=== PATIENT | male | born 1995 | race Two or more races ===

== ENCOUNTER 2020-08-17 18:08 | Emergency (ER) | payer MEDICAID, SELFPAY ==
[2020-08-17 19:08] VITALS: BP 127/58; PULSE 90; RESP 20; TEMP 37.5; O2SAT 99
== END 2020-08-17 20:56 | disposition left against medical advice (07) ==
PROVIDERS: Emergency Provider Emergency Medicine
DX: F41.1 Generalized anxiety disorder (principal); F43.0 Acute stress reaction

== ENCOUNTER 2020-08-18 05:02 | Emergency (ER) | payer MEDICAID, SELFPAY ==
--- NOTE | 2020-08-18 | ECG_ITS ---
Test Reason : CHEST PAIN Blood Pressure : / mmHG Vent. Rate : 084 BPM Atrial Rate : 084 BPM P-R Int : 146 ms QRS Dur : 098 ms QT Int : 358 ms P-R-T Axes : 066 045 033 degrees QTc Int : 423 ms Normal sinus rhythm Normal ECG No previous ECGs available Referred By: Generic ED Physician Electronically Signed By:Brendon Bro
--- NOTE | ~2020-08-18 | XR_ITS ---
EXAMINATION: XR CHEST CLINICAL INFORMATION: Chest pain COMPARISON: Chest radiograph 12/14/2018, 12/20/2017. TECHNIQUE: 2 views of the chest were obtained. FINDINGS: Cardiac mediastinal silhouette is normal in appearance. No effusions or pneumothoraces are identified. A normal pattern of pulmonary vasculature is visualized. No pulmonary consolidation is noted in the lungs appear clear. No skeletal abnormalities are noted. XR/XR chest 2V IMPRESSION: Normal chest. Lungs clear.
[2020-08-18 05:52] VITALS: BP 141/85; PULSE 93; RESP 18; TEMP 37.6; O2SAT 100
--- NOTE | 2020-08-18 07:23 | ED_ITS ---
HPI - Chest Pain General Chief Complaint: Anxiety Stated Complaint: Chest pain Time Seen by Provider: 08/18/20 07:25 Source: patient Mode of arrival: ambulatory Limitations: no limitations History of Present Illness HPI narrative: 25 yo male healthy comes in with 24 hours of dyspnea and some chest pain thinks it might be anxiety MD complaint: chest pain and other (dyspnea) Onset (ago): day(s) (1) Timing of current episode: constant Onset: during rest and during exertion Pain location: substernal Pain radiation: none Severity: moderate Quality: tightness Relieving factors: nothing Exacerbating factors: nothing Associated symptoms: dyspnea Treatment prior to arrival: none Related Data Previous Rx's Medication Instructions Recorded hydroxyzine HCl 50 mg PO TID PRN #30 tab 08/18/20 Allergies Allergy/AdvReac Type Severity Reaction Status Date / Time amoxicillin [AMOXICILLIN] Allergy Intermediate RASH Unverified 03/17/20 18:52 Review of Systems Review of Systems: Constitutional : No Weight loss, No Fever, No Chills ENT/Mouth : No sore throat, No Rhinorrhea Eyes: No Eye Pain, No Swelling Cardiovascular : pos Chest Pain, pos SOB, no Dyspnea on Exertion, No Orthopnea, No Edema, No Palpitations Respiratory : No Cough, No Sputum Gastrointestinal : no Nausea, No Vomiting, No Diarrhea, No abdominal Pain, No Hematochezia, No Melena Genitourinary : No Dysuria, No Urinary Frequency Musculoskeletal : No joint pain, No Myalgias, No Joint Swelling Skin : No Skin Lesions, No rash Neuro : No Weakness, No Numbness, No Dizziness, No Headache Psych : pos Anxiety/Panic, No Depression Heme/Lymph: No Bruising, No Lymphadenopathy Endocrine : No Polyuria, No Polydipsia All other systems reviewed and are negative [facility] Past Medical History Attestation statement: The following information was validated with the patient. Medical History (Updated 08/18/20 @ 08:40 by Lilo Leary DO) No active medical problems Social History Social History (Updated 08/18/20 @ 07:37 by Lilo Leary DO) Smoking Status: Former smoker Use of substances other than those prescribed or required for medical reasons: No Advance Directives: No Advance Directives Information Provided: Yes Physical Exam Vital Signs: Vital Signs: Last Vital Signs Temp 99.2 F 08/18/20 07:37 Pulse 88 08/18/20 07:37 Resp 18 08/18/20 07:37 BP 138/90 H 08/18/20 07:37 Pulse Ox 100 08/18/20 07:37 Body Mass Index 19.2 Appearance: Alert. Oriented X3. No acute distress. Anxious Eyes: Pupils equal, round and reactive to light. ENT: Pharynx normal. Neck: Normal inspection. Neck supple. CVS: Normal heart rate and rhythm. Pulses normal. Respiratory: No respiratory distress. Breath sounds normal. Abdomen: Soft and nontender. Skin: Skin warm and dry. Normal skin color. Normal skin turgor. Extremities: No lower extremity edema. No calf ttp Neuro: Oriented X 3. No motor deficit. No sensory deficit. Course Course Course Narrative: stable for DC, negative workup MDM - Chest Pain MDM Narrative Medical decision making narrative: 25 yo male with dyspnea and some chest pain x 1 days seems more anxiety related EKG, CXR and troponin x 1 ordered, will send off COVID test as well - PO ativan for anxiety, he is PERC negative has symmetric distal pulses doubt dissection Lab Data Labs: Lab Results 08/18/20 08/18/20 Range/Units 07:55 07:55 Troponin I High Sens < 3.5 (<3.5-35.0) ng/L COVID-19 (ROSIE) Negative (Negative) COVID-19 Clin Com See Note ECG Data ECG #1: Attestation: I personally reviewed and interpreted this ECG as follows: ECG interpretation date: 08/18/20 ECG interpretation time: 07:26 Interpretation: Rate: 84 Rhythm: NSR [place]: normal Normal P waves. Normal MIGDALIA. Normal QRS complex. ST T wave : normal no KEYUR qTC: normal prior studies: no acute ischemia The study has been interpreted contemporaneously by me. . Discharge Plan Discharge Clinical Impression: Acute anxiety Chest pain Qualifiers: Chest pain type: unspecified Qualified Code(s): R07.9 - Chest pain, unspecified Patient Disposition: Home, Self-Care Instructions: Chest Pain (ED), Anxiety (ED) Additional Instructions: return to ED for any worsening symptoms or concerns YOUR CHEST XRAY, COVID SWAB AND HEART MARKERS IN YOUR BLOOD WERE NORMAL Prescriptions: New hydroxyzine HCl 50 mg tablet 50 mg PO TID PRN (Reason: anxiety) Qty: 30 RF: 0 Referrals: Physician,None [Primary Care Provider] - 2 weeks (RECHECK BLOOD PRESSURE) Stand Alone Forms: Work/School Release
[2020-08-18 07:37] VITALS: BP 138/90; PULSE 88; RESP 18; TEMP 37.3; O2SAT 100; BMI 19.2
[2020-08-18] MEDS: LORazepam 1 MG TABLET PO (07:42)
[2020-08-18 08:16] LABS: IDNOW Serial# 9DD0AD1C
[2020-08-18 08:17] LABS: COVID-19 Test Negative (Negative)
[2020-08-18 08:33] LABS: Troponin-I High Sensitivity < 3.5 ng/L (<3.5-35.0)
== END 2020-08-18 08:53 | disposition home or self-care (01) ==
PROVIDERS: Emergency Provider Emergency Medicine
DX: R07.9 Chest pain, unspecified (principal); F41.9 Anxiety disorder, unspecified; Z20.822 Contact with and (suspected) exposure to COVID-19
CPT/HCPCS: 36415; 71046; 84484; 87635; 93005; 99283; 99284

== ENCOUNTER 2021-07-28 07:12 | Outpatient (REF) | payer MEDICAID, SELFPAY | END 2021-07-28 07:13 | disposition home or self-care (01) | LOC: HO.LAB 07:12 | PROVIDERS: PCP Internal Medicine; Visit Provider Nurse Practitioner | DX: K51.90 Ulcerative colitis, unspecified, without complications (principal); K92.1 Melena; D64.9 Anemia, unspecified; E73.9 Lactose intolerance, unspecified | CPT/HCPCS: 36415; 86003; 99202 ==

== ENCOUNTER 2021-09-12 07:32 | Outpatient (REF) | payer MEDICAID, SELFPAY ==
[2021-09-12 08:33] LABS: MANUAL DIFF FLAG NO
[2021-09-12 09:18] LABS: Basophils Percent Auto 0.4 % (0-2); Eosinophils Absolute Auto 0.1 X10*3/uL (0.0-0.4); Eosinophils Percent Auto 1.3 % (0-4); Hematocrit 34.5 % (42.0-52.0); Hemoglobin 10.2 g/dl (14.0-18.0); Imm Gran Abs Auto 0.23 X10*3/uL (0.00-0.03); Imm Gran Pct Auto 2.5 % (0.0-0.4); Lymphocytes Absolute Auto 2.6 X10*3/uL (1.2-4.9); Lymphocytes Percent Auto 27.8 % (20-40); Mean Corpuscular HGB Conc 29.6 g/dl (31.0-36.0); Mean Corpuscular Volume 81.2 fL (80.0-98.0); Mean Platelet Volume 10.7 fL (9.4-12.4); Monocytes Absolute Auto 0.9 X10*3/uL (0.1-1.2); Monocytes Percent Auto 10.2 % (2-11); Neutrophils Absolute Auto 5.3 x10*3/uL (2.0-8.3); Neutrophils Percent Auto 57.8 % (45-73); Platelet Count 308 X10*3/uL (160-400); Red Blood Count 4.25 X10*6/uL (4.60-5.80); Red Cell Distribution Width 15.2 % (11.0-16.0); White Blood Count 9.2 X10*3/uL (4.8-10.8)
[2021-09-12 09:35] LABS: C Reactive Protein 0.17 mg/dL (< or = 0.50)
== END 2021-09-12 07:33 | disposition home or self-care (01) ==
LOC: HO.LAB 07:32
PROVIDERS: PCP Internal Medicine; Referring Provider Internal Medicine; Visit Provider Nurse Practitioner
DX: K50.90 Crohn's disease, unspecified, without complications (principal); D64.9 Anemia, unspecified; E73.9 Lactose intolerance, unspecified
CPT/HCPCS: 36415; 85025; 86140; 99212

== ENCOUNTER → 2021-10-27 07:45 | Outpatient (BNVA) | payer MEDICAID, SELFPAY | PROVIDERS: PCP Internal Medicine; Referring Provider Internal Medicine; Visit Provider Nurse Practitioner | DX: K50.90 Crohn's disease, unspecified, without complications (principal); D64.9 Anemia, unspecified | CPT/HCPCS: 99212 ==

== ENCOUNTER 2021-12-25 16:31 | Outpatient (REF) | payer MEDICAID, SELFPAY ==
[2021-12-25 16:40] LABS: MANUAL DIFF FLAG NO
[2021-12-25 16:49] LABS: Basophils Percent Auto 0.4 % (0-2); Eosinophils Absolute Auto 0.2 X10*3/uL (0.0-0.4); Eosinophils Percent Auto 2.4 % (0-4); Hematocrit 42.6 % (42.0-52.0); Hemoglobin 13.7 g/dl (14.0-18.0); Imm Gran Abs Auto 0.03 X10*3/uL (0.00-0.03); Imm Gran Pct Auto 0.4 % (0.0-0.4); Lymphocytes Percent Auto 27.1 % (20-40); Mean Corpuscular HGB Conc 32.2 g/dl (31.0-36.0); Mean Corpuscular Hemoglobin 25.3 pg (27.0-33.0); Mean Corpuscular Volume 78.6 fL (80.0-98.0); Mean Platelet Volume 10.3 fL (9.4-12.4); Monocytes Absolute Auto 0.7 X10*3/uL (0.1-1.2); Monocytes Percent Auto 8.7 % (2-11); Neutrophils Absolute Auto 4.5 x10*3/uL (2.0-8.3); Platelet Count 187 X10*3/uL (160-400); Red Blood Count 5.42 X10*6/uL (4.60-5.80); Red Cell Distribution Width 21.1 % (11.0-16.0); White Blood Count 7.5 X10*3/uL (4.8-10.8)
[2021-12-25 17:26] LABS: C Reactive Protein 0.12 mg/dL (< or = 0.50)
== END 2021-12-25 16:32 | disposition home or self-care (01) ==
LOC: HO.LAB 16:31
PROVIDERS: Visit Provider Nurse Practitioner
DX: K50.90 Crohn's disease, unspecified, without complications (principal); D64.9 Anemia, unspecified
CPT/HCPCS: 36415; 85025; 86140; 99212

== ENCOUNTER → 2022-02-20 15:37 | Outpatient (BNVA) | payer MEDICAID, SELFPAY | PROVIDERS: PCP Internal Medicine; Visit Provider Nurse Practitioner | DX: K50.90 Crohn's disease, unspecified, without complications (principal) | CPT/HCPCS: 99212 ==

== ENCOUNTER 2022-10-09 08:27 | Outpatient (REF) | payer MEDICAID, SELFPAY ==
[2022-10-09 11:15] LABS: C Reactive Protein 0.14 mg/dL (< or = 0.50)
== END 2022-10-09 08:28 | disposition home or self-care (01) ==
LOC: HO.LAB 08:27
PROVIDERS: PCP Internal Medicine; Visit Provider Nurse Practitioner
DX: K50.90 Crohn's disease, unspecified, without complications (principal)
CPT/HCPCS: 36415; 81335; 81479; 82397; 83520; 86140; 88346; 88350; 99212

== ENCOUNTER 2023-01-16 13:51 | Outpatient (AMB) | payer MEDICAID, SELFPAY ==
--- NOTE | 2023-01-16 13:54 | MHC.OFFVIS ---
Intake Vital Signs 01/16/23 13:55 Height 5 ft 8 in Weight 145 lb 15.136 oz BMI 22.2 BP 111/68 Blood Pressure Location Rt brachial Position Sitting Pulse 60 Intake Visit Reasons: 8 week fu Intake Note: Patient returns to iin office 8 weeks follow up of his Chron's disease. CC: Patient reports he went to the hospital at [facility] yesterday with abdominal pain and was told he had a flare up. Denies other GI symptoms today and states feeling good . Community Recreation Coordinator Required: No Accompanied by: Self / Same As Patient Allergies Peppers, Green Allergy (Severe, Verified 01/16/23 13:57) Anaphylaxis amoxicillin [AMOXICILLIN] Allergy (Intermediate, Verified 01/16/23 13:57) RASH novocaine Allergy (Severe, Uncoded 12/25/21 15:52) Anaphylaxis HPI 8 week fu HPI Details Assessment & Plan (1) Crohn's disease: ?Comment: 07/2020 he was admitted at [facility] CRP was 7 stool calprotectin was greater than 2000, stool studies were negative for C diff or other infection although white blood cells were marked. ?Code(s): K50.90 - Crohn's disease, unspecified, without complications ?Plan: We discussed options for treatment since he had more left sided pain at one point on the mesalamine. It would occur daily and was sharp and would last a couple of minutes with severe about 5-6/10. Still happens off of the medicine but not as often. He has been off of the mesalamine for? a week and 2 days. After discussing treatment and for now he decides to re start the mesalamine. He lost his job, the was r/t it not offering health insurance. He is on [employer] now and this is covering his medication. ROV 8 weeks. Order CRP, prometheus TMPT and IBD genetics. ? ? ? Orders: Orders C Reactive Protein Today K50.90 - Crohn's d isease, unspecifie d, without complic ations ? [facility] TPMT Ge netics Today K50.90 - Crohn's d isease, unspecifie d, without complic ations ? [facility] IBD SGI Today K50.90 - Crohn's d isease, unspecifie d, without complic ations ? LABS: Laboratory Tests 10/09/22 09:48 C-Reactive Protein 0.14 [facility] IBD genetics were not consistent with IBD, he has an intermediate TMP T enzyme metabolism.. THE CORRESPONDENCE On 01/14/23 @ 14:07 Julia Mckeon Wrote To Antonio,September pt is in [facility] currently in a lot of pain. he wanted to let you know TODAY'S VISIT He started having problems 2 days ago and he presented to [facility] ER across the upper abdomen that was severe, he was told he has acute Crohns and was given prednisone. He had stopped taking the mesalamine as he thought is was causing him pain (more likely his Crohns was not controlled after tapering prednisone). He was discharged with prednisone, but he does not know the dose. I will move him to [facility]. ROV 1-2 weeks. [facility] Medical History No active medical problems Surgical History Hx of colonoscopy Family History Paternal Grandmother Dialysis patient Social History Alcohol intake: former Patient Tobacco Use Status: Never used Tobacco Substance Use Type: Marijuana Review of Systems Const Denies fatigue, Denies fever(s), Denies night sweats, Reports poor appetite and Denies weight loss ENT Reports Normal hearing present, Denies dental pain, Denies dysphagia, Denies hearing loss, Denies mouth pain, Denies odynophagia, Denies throat swelling, Denies tongue swelling and Reports other (Dentition adequate) Card Reports no additional complaints Resp Reports no additional complaints GI Reports abdominal pain, Denies melena, Denies bloating, Denies hematochezia, Denies constipation, Denies GI cramping, Denies dysphagia, Denies excessive flatus, Denies early satiety, Denies heartburn, Reports diarrhea, Denies nausea, Denies odynophagia, Denies vomiting and Denies hematemesis Skin/Breast Denies pruritus, Denies lesions, Denies rash and Denies jaundice Neuro Reports Normal hearing present and Denies Abnormal speech present Endo Denies fatigue Aller/Immun Denies throat swelling and Denies tongue swelling Physical Exam Vital Signs: Last Vital Signs Pulse 60 01/16/23 13:55 BP 111/68 01/16/23 13:55 BMI result Body Mass Index 22.2 Const General: cooperative, no acute distress, well developed and well groomed Nutritional Appearance: average body habitus and well nourished Orientation/consciousness: oriented to person, oriented to place and oriented to time Limitations: No language barrier HEENT Head: Yes normocephalic and Yes atraumatic Eyes General: appearance normal, both eyes and all related structures Pupils: Equal, round and reactive pupils present Neck Neck: Yes normal visual inspection and Yes no lymphadenopathy Thyroid: Thyroid normal Resp Effort & Inspection: normal respiratory effort and able to speak in complete sentences Auscultation: clear to auscultation bilaterally Cardio Rate: regular rate Rhythm: regular rhythm Heart sounds: Normal, physiologic split S2 sound present Peripheral pulses: radial pulses present and posterior tibial pulses present GI Inspection: No distended and No Abdominal panniculus present Palpation (GI): Soft to palpation, nontender, no guarding, not rigid and No hepatosplenomegaly present Percussion: Yes normal to percussion Auscultation: normal bowel sounds Rectal Exam - Male: Yes deferred Skin General skin exam: no rashes or lesions noted, turgor normal, skin not dry, no jaundice, No spider nevi and no striae Rashes: no rashes Nails: normal Neuro General: oriented to person, oriented to place and oriented to time Cranial nerves: Yes Equal, round and reactive pupils present and Yes Normal hearing present Speech: No Abnormal speech present Extrem General: Yes normal to inspection, No clubbing, No cyanosis and No edema Psych Appearance: grossly normal and well kempt Mental Status: mental status grossly normal Speech and movement: Normal speech and movement present Affect: normal affect Attitude: cooperative Thought process: Normal thought process present and not confabulating Thought content: Normal thought content present Insight: Limited insight present (Psych) Judgement: Limited judgement present (Psych) Assessment & Plan Assessment & Plan (1) Crohn's disease: Comment: 07/2020 he was admitted at [facility] CRP was 7 stool calprotectin was greater than 2000, stool studies were negative for C diff or other infection although white blood cells were marked. Code(s): K50.90 - Crohn's disease, unspecified, without complications Plan: He started having problems 2 days ago and he presented to [facility] ER across the upper abdomen that was severe, he was told he has acute Crohns and was given prednisone. He had stopped taking the mesalamine as he thought is was causing him pain (more likely his Crohns was not controlled after tapering prednisone). He was discharged with prednisone, but he does not know the dose. I will move him to [facility]. ROV 1-2 weeks. (2) Lactose intolerance: Code(s): E73.9 - Lactose intolerance, unspecified Medications: New adalimumab (Humira Pen Crohn's-[facility] Colitis-Hid Sup Starter) inject 180mg day 1, 80 mg day 15, then 40mg every 2 weeks 6 ea 0RF K50.90 - Crohn's disease, unspecified, without complications Discontinued mesalamine Discontinued Reason: Doctor's Order 4.8 grams (4 x 1.2 gram) PO DAILY 8 weeks 224 tabs 6RF K51.90 - Ulcerative colitis, unspecified, without complications Coding Level of Care Code Est Pt Level 3 (99689) Diagnoses Crohn's disease K50.90 Lactose intolerance E73.9
[2023-01-16 13:55] VITALS: BP 111/68; PULSE 60; BMI 22.2
== END 2023-01-16 14:44 | disposition home or self-care (01) ==
PROVIDERS: PCP Internal Medicine; Visit Provider Nurse Practitioner
DX: K50.90 Crohn's disease, unspecified, without complications (principal); E73.9 Lactose intolerance, unspecified
CPT/HCPCS: 99213

== ENCOUNTER → 2023-01-16 13:51 | Outpatient (BNVA) | payer MEDICAID, SELFPAY | PROVIDERS: PCP Internal Medicine; Visit Provider Nurse Practitioner | DX: K50.90 Crohn's disease, unspecified, without complications (principal); E73.9 Lactose intolerance, unspecified | CPT/HCPCS: 99213 ==

== ENCOUNTER 2023-07-29 11:03 | Outpatient (REF) | payer MEDICAID, SELFPAY ==
[2023-07-29 15:00] LABS: CT PCR NOT DETECTED (Not Detect.); NG PCR NOT DETECTED (Not Detect.)
[2023-07-30 05:45] LABS: HIV AB/AG Nonreactive (Nonreactive); HIV Num 1 0.05 S/CO (0.00-0.99)
[2023-07-30 11:19] LABS: RPR Rapid Plasma Reagin NON-REACTIVE (NON-REACTIVE)
== END 2023-07-29 11:04 | disposition home or self-care (01) ==
LOC: HO.HHCL 11:03
PROVIDERS: Visit Provider Registered Nurse
DX: Z11.3 Encounter for screening for infections with a predominantly sexual mode of transmission (principal)
CPT/HCPCS: 0353U; 36415; 86592; 87389

== ENCOUNTER 2023-09-20 13:50 | Outpatient (REF) | payer MEDICAID, SELFPAY ==
[2023-09-20 16:12] LABS: MANUAL DIFF FLAG NO
[2023-09-20 16:16] LABS: Basophils Percent Auto 0.5 % (0-2); Eosinophils Absolute Auto 0.1 X10*3/uL (0.0-0.4); Eosinophils Percent Auto 2.1 % (0-4); Hematocrit 45.3 % (42.0-52.0); Hemoglobin 14.6 g/dl (14.0-18.0); Imm Gran Abs Auto 0.04 X10*3/uL (0.00-0.03); Imm Gran Pct Auto 0.7 % (0.0-0.4); Lymphocytes Absolute Auto 1.7 X10*3/uL (1.2-4.9); Lymphocytes Percent Auto 28.5 % (20-40); Mean Corpuscular HGB Conc 32.2 g/dl (31.0-36.0); Mean Corpuscular Hemoglobin 28.3 pg (27.0-33.0); Mean Platelet Volume 10.7 fL (9.4-12.4); Monocytes Absolute Auto 0.5 X10*3/uL (0.1-1.2); Monocytes Percent Auto 8.6 % (2-11); Neutrophils Absolute Auto 3.6 x10*3/uL (2.0-8.3); Neutrophils Percent Auto 59.6 % (45-73); Platelet Count 185 X10*3/uL (160-400); Red Blood Count 5.15 X10*6/uL (4.60-5.80); Red Cell Distribution Width 12.3 % (11.0-16.0); White Blood Count 6.1 X10*3/uL (4.8-10.8)
[2023-09-20 16:42] LABS: Alanine Aminotransferase 20 U/L (0-40); Albumin Level 4.8 g/dL (3.5-5.0); Alkaline Phosphatase 79 U/L (39-117); Anion Gap 13 (12-20); Aspartate Amino Transferase 17 U/L (5-37); Bilirubin Total 0.5 mg/dL (0.0-1.0); Blood Urea Nitrogen 11 mg/dL (9-16); Calcium 10.2 mg/dL (8.4-10.2); Carbon Dioxide 30 mmol/L (22-29); Chloride 104 mmol/L (96-108); Estimated Glomerular Filt Rate > 60; Glucose Random 68 mg/dL (60-115); Potassium 4.7 mmol/L (3.3-5.1); Sodium 142 mmol/L (135-145); Total Protein 7.7 g/dL (6.5-8.0)
[2023-09-20 16:47] LABS: Vitamin D 25-OH Total 26.1 ng/mL (>30)
[2023-09-20 16:59] LABS: Folate 8.2 ng/mL (> or = 4.0); Vitamin B12 466 pg/mL (200-900)
[2023-09-20 17:52] LABS: Erythrocyte Sedimentation Rate 7 MM/HR (0-15)
== END 2023-09-20 13:51 | disposition home or self-care (01) ==
LOC: HO.HHCL 13:50
PROVIDERS: Visit Provider Registered Nurse
DX: K50.919 Crohn's disease, unspecified, with unspecified complications (principal)
CPT/HCPCS: 36415; 80053; 82306; 82607; 82746; 85025; 85652; 86140